=== PATIENT | female | born 1990 | race African-American/Black ===

== ENCOUNTER 2018-07-24 03:20 | Emergency (ER) | payer SELFPAY ==
[~2018-07-24] VITALS: Ht 160 cm; Wt 60.0 kg
[2018-07-24 04:48] VITALS: BP 125/75
--- NOTE | 2018-07-24 04:48 | NUR ---
Patient given discharge instructions and they have confirmed that they understand the instructions. Patient ambulatory with steady gait.
== END 2018-07-24 04:50 | disposition home or self-care (01) ==
LOC: ED 03:48
DX: S02.5XXA Fracture of tooth (traumatic), initial encounter for closed fracture (principal); F10.220 Alcohol dependence with intoxication, uncomplicated; F17.200 Nicotine dependence, unspecified, uncomplicated; W01.0XXA Fall on same level from slipping, tripping and stumbling without subsequent striking against object, initial encounter; Y93.89 Activity, other specified; Y92.59 Other trade areas as the place of occurrence of the external cause; Y99.8 Other external cause status
CPT/HCPCS: 99283